=== PATIENT | male | born 2000 | race Caucasian/White ===

== ENCOUNTER 2022-09-08 13:57 | Emergency (ER) | payer OTHER ==
[~2022-09-08] VITALS: Ht 177.8 cm; Wt 84.1 kg
[2022-09-08] MEDS ORDERED: ACETAMINOPHEN 325 MG TAB PO ONE (16:25)
[2022-09-08 16:39] VITALS: BP 130/68
== END 2022-09-08 16:42 | disposition home or self-care (01) ==
LOC: M ED 15:46
DX: S06.0X0A Concussion without loss of consciousness, initial encounter (principal); W00.0XXA Fall on same level due to ice and snow, initial encounter; Y99.1 Military activity

== ENCOUNTER 2024-07-18 17:11 | Emergency (ER) | payer OTHER ==
[~2024-07-18] VITALS: Ht 177.8 cm; Wt 91.1 kg
[2024-07-18 17:16] VITALS: BP 139/65; TEMP 98.6; O2SAT 97
== END 2024-07-18 21:14 | disposition home or self-care (01) ==
LOC: M ED 17:11
DX: M25.512 Pain in left shoulder (principal)